=== PATIENT | male | born 1955 | race Caucasian/White ===

== ENCOUNTER 2023-08-01 16:00 | Inpatient (IN) | payer SELFPAY ==
[~2023-08-01] VITALS: Ht 167.6 cm; Wt 100.0 kg
[2023-08-01 17:03] LABS: APPEARANCE,URINE TURBID (CLEAR); BILIRUBIN,URINE NEGATIVE (NEGATIVE); COLOR,URINE ORANGE (YELLOW); GLUCOSE, URINE (UA) 70-100 mg/dL (NEGATIVE); KETONES,URINE NEGATIVE (NEGATIVE); LEUKOCYTE ESTERASE ,URINE LARGE (NEGATIVE); NITRATE,URINE NEGATIVE (NEGATIVE); OCCULT BLOOD,URINE LARGE (NEGATIVE); PROTEIN,URINE 300-600,SEE CONFIRM mg/dL (NEGATIVE); SPECIFIC GRAVITIY, URINE 1.018 (1.003-1.030); UROBILINOGEN,URINE <=1.0 mg/dL (<=1.0)
[2023-08-01 17:15] LABS: SULFOSALICYLIC ACID,URINE 4+ (Negative)
[2023-08-01 17:16] LABS: BACTERIA,URINE Many /HPF (None Seen); RBC,URINE 26-50 /HPF (0-2); WBC,URINE Full Field /HPF (0-5)
[2023-08-01] MEDS ORDERED: 0.9% SODIUM CHLORIDE 10 ML SYRINGE IVP PRN (17:45)
[2023-08-01 18:00] LABS: COVID AG,FIA SOURCE NASAL SWAB
[2023-08-01 18:17] LABS: HEMATOCRIT 40.5 % (41-53); HEMOGLOBIN 13.7 g/dL (13.5-17.5); MEAN CORPUSCULAR HEMOGLOBIN 31.8 pg (26.0-34.0); MEAN CORPUSCULAR HGB CONC 33.8 G/dL (31.0-37.0); MEAN CORPUSCULAR VOLUME 94 fL (80-100); PLATELET COUNT (AUTO) 268 K/uL (150-450); RED BLOOD CELL COUNT(AUTO) 4.31 MIL/uL (4.50-5.90); RED CELL DISTRIBUTION WIDTH 14.3 % (11.5-14.5); WHITE BLOOD COUNT (AUTO) 23.1 K/uL (4.5-11.0)
[2023-08-01 18:25] LABS: SARS-COV2 (COVID) ANTIGEN,FIA Negative (Negative)
[2023-08-01 18:28] LABS: D-DIMER 0.88 mg/L FEU (0.00-0.50); INR 1.1 (0.9-1.1); PROTHROMBIN TIME 11.5 SEC (9.4-11.6)
[2023-08-01 18:32] LABS: TROPONIN I-HIGH SENSITIVITY 12 ng/L (<76)
[2023-08-01 18:39] LABS: ANION GAP 11 mmol/L (8-16); CALCIUM, TOTAL 8.3 mg/dL (8.8-10.5); CARBON DIOXIDE 23 mmol/L (22-29); CHLORIDE 96 mmol/L (98-107); CREATININE 2.06 mg/dL (0.60-1.30); GLOMERULAR FILTR. RATE CALC 32 mL/min (>60); GLUCOSE,RANDOM 99 mg/dL (70-110); LACTIC ACID 2.3 mmol/L (0.4-2.0); POTASSIUM 4.4 mmol/L (3.5-5.1); SODIUM SERUM 130 mmol/L (136-145); UREA NITROGEN, BLOOD 25 mg/dL (7-18)
[2023-08-01] MEDS: SODIUM CHLORIDE 0.9% 2,950 ML IV ONE (18:40)
[2023-08-01] MEDS: CefTRIAXone 1 GM/DEXTROSE 50 ML IV ONE (18:41)
[2023-08-01 18:44] LABS: ALANINE AMINOTRANSFERASE 54 U/L (12-78); ALBUMIN 3.2 g/dL (3.4-5.0); ALKALINE PHOSPHATASE 75 U/L (46-116); ASPARTATE AMINOTRANSFERASE 27 U/L (15-37); BILIRUBIN,TOTAL 1.6 mg/dL (0.1-1.0); TOTAL PROTEIN, SERUM 7.7 g/dL (6.4-8.2)
[2023-08-01 19:05] LABS: BAND NEUTROPHILS % (MANUAL) 23 % (0-5); LYMPHOCYTES % (MANUAL) 5 % (22-44); MONOCYTES % (MANUAL) 4 % (2-9); SEGMENTED NEUTROPHILS % 68 % (40-70); TOTAL CELLS COUNTED 100
[2023-08-02 12:06] VITALS: BP 122/72; PULSE 121; RESP 20; TEMP 98
[2023-08-02] MEDS ORDERED: MORPHINE SULFATE 2 MG/ML SYRINGE IVP PRN (13:00)
[2023-08-02] MEDS ORDERED: ZOLPIDEM TARTRATE 5 MG TABLET PO PRN (13:00)
[2023-08-02] MEDS ORDERED: ONDANSETRON HCL 4 MG/2 ML VIAL IVP PRN (13:00)
[2023-08-02] MEDS ORDERED: MAGNESIUM HYDROXIDE SUSPENSION 30 ML UDCUP PO PRN (13:00)
[2023-08-02] MEDS ORDERED: BISACODYL 10 MG RECTAL RECTAL SUPPOSITORY PR PRN (13:00)
[2023-08-02] MEDS ORDERED: IPRATROPIUM BROMIDE 0.5 MG/2.5 ML NEB SOLUTION NEB PRN (13:00)
[2023-08-02] MEDS ORDERED: ALBUTEROL SULFATE 2.5 MG/0.5 ML NEB SOLUTION NEB PRN (13:00)
[2023-08-02 13:40] LABS: HEMATOCRIT 37.1 % (41-53); HEMOGLOBIN 12.7 g/dL (13.5-17.5); MEAN CORPUSCULAR HGB CONC 34.2 G/dL (31.0-37.0); MEAN CORPUSCULAR VOLUME 94 fL (80-100); PLATELET COUNT (AUTO) 162 K/uL (150-450); RED BLOOD CELL COUNT(AUTO) 3.96 MIL/uL (4.50-5.90); RED CELL DISTRIBUTION WIDTH 14.4 % (11.5-14.5); WHITE BLOOD COUNT (AUTO) 19.7 K/uL (4.5-11.0)
[2023-08-02 13:47] LABS: HEMOGLOBIN A1C 6.4 % (3.8-5.6)
[2023-08-02 13:53] LABS: CALCIUM, TOTAL 8.3 mg/dL (8.8-10.5); CREATININE 2.07 mg/dL (0.60-1.30); POTASSIUM 4.2 mmol/L (3.5-5.1)
[2023-08-02 13:59] LABS: ALBUMIN 2.9 g/dL (3.4-5.0); BILIRUBIN,TOTAL 2.1 mg/dL (0.1-1.0); TOTAL PROTEIN, SERUM 7.3 g/dL (6.4-8.2); URIC ACID 9.4 mg/dL (2.6-7.2)
[2023-08-02 14:16] LABS: BAND NEUTROPHILS % (MANUAL) 14 % (0-5); LYMPHOCYTES % (MANUAL) 13 % (22-44); MONOCYTES % (MANUAL) 2 % (2-9); SEGMENTED NEUTROPHILS % 71 % (40-70); TOTAL CELLS COUNTED 100
[2023-08-02 14:17] LABS: RBC MORPHOLOGY COMMENT NORMAL RBC MORPH
[2023-08-02] MEDS: ACETAMINOPHEN 325 MG TABLET PO PRN (14:32)
[2023-08-02 15:21] VITALS: BP 128/70; PULSE 130; RESP 18; TEMP 98
[2023-08-02] MEDS: HEPARIN SODIUM,PORCINE 5,000 UNITS/ML VIAL SQ SCH (16:38)
[2023-08-02] MEDS: CefTRIAXone 1 GM/DEXTROSE 50 ML IV SCH (17:27)
[2023-08-02 20:55] VITALS: BP 123/70; PULSE 106; RESP 22; TEMP 98
[2023-08-03 00:10] VITALS: BP 125/73; PULSE 110; RESP 22; TEMP 98.3
[2023-08-03 04:00] VITALS: BP 141/81; PULSE 111; RESP 22; TEMP 98.1
[2023-08-03 07:38] LABS: BASOPHILS % (AUTO) 0.4 % (0.0-2.0); EOSINOPHILS % (AUTO) 1.3 % (1.0-6.0); HEMATOCRIT 35.9 % (41-53); HEMOGLOBIN 12.3 g/dL (13.5-17.5); LYMPHOCYTES # (AUTO) 1.3 K/uL (1.0-4.8); LYMPHOCYTES % (AUTO) 8.6 % (22.0-44.0); MEAN CORPUSCULAR HEMOGLOBIN 32.1 pg (26.0-34.0); MEAN CORPUSCULAR HGB CONC 34.2 G/dL (31.0-37.0); MEAN CORPUSCULAR VOLUME 94 fL (80-100); MONOCYTES # (AUTO) 0.6 K/uL (0.1-1.0); MONOCYTES % (AUTO) 3.7 % (2.0-9.0); NEUTROPHILS # (AUTO) 13.5 K/uL (1.8-7.7); PLATELET COUNT (AUTO) 130 K/uL (150-450); RED BLOOD CELL COUNT(AUTO) 3.82 MIL/uL (4.50-5.90); RED CELL DISTRIBUTION WIDTH 14.5 % (11.5-14.5); WHITE BLOOD COUNT (AUTO) 15.7 K/uL (4.5-11.0)
[2023-08-03 07:52] LABS: ALBUMIN 2.6 g/dL (3.4-5.0); BILIRUBIN,TOTAL 0.9 mg/dL (0.1-1.0); CALCIUM, TOTAL 8.5 mg/dL (8.8-10.5); CREATININE 1.46 mg/dL (0.60-1.30); POTASSIUM 3.7 mmol/L (3.5-5.1); TOTAL PROTEIN, SERUM 7.1 g/dL (6.4-8.2)
[2023-08-03 07:59] LABS: RBC MORPHOLOGY COMMENT NORMAL RBC MORPH
[2023-08-03] MEDS: PANTOPRAZOLE SODIUM 40 MG DR TABLET PO SCH (08:14)
[2023-08-03 11:43] VITALS: BP 141/79; PULSE 106; RESP 20; TEMP 98.2
[2023-08-03 15:00] VITALS: BP 129/66; PULSE 107; RESP 20; TEMP 98.2
[2023-08-03] MEDS ORDERED: SODIUM CHLORIDE 0.9% 500 ML IV ONE (15:46)
[2023-08-03 19:21] VITALS: BP 137/74; PULSE 107; RESP 19; TEMP 98.6
[2023-08-04 04:39] VITALS: BP 140/84; PULSE 105; RESP 18; TEMP 98.2
[2023-08-04 07:00] LABS: BASOPHILS % (AUTO) 0.6 % (0.0-2.0); EOSINOPHILS % (AUTO) 4.3 % (1.0-6.0); HEMATOCRIT 35.9 % (41-53); HEMOGLOBIN 12.6 g/dL (13.5-17.5); LYMPHOCYTES # (AUTO) 1.2 K/uL (1.0-4.8); LYMPHOCYTES % (AUTO) 16.6 % (22.0-44.0); MEAN CORPUSCULAR HEMOGLOBIN 32.6 pg (26.0-34.0); MEAN CORPUSCULAR VOLUME 93 fL (80-100); MONOCYTES # (AUTO) 0.5 K/uL (0.1-1.0); MONOCYTES % (AUTO) 6.9 % (2.0-9.0); NEUTROPHILS # (AUTO) 5.4 K/uL (1.8-7.7); NEUTROPHILS % (AUTO) 71.6 % (40.0-70.0); PLATELET COUNT (AUTO) 142 K/uL (150-450); RED BLOOD CELL COUNT(AUTO) 3.85 MIL/uL (4.50-5.90); RED CELL DISTRIBUTION WIDTH 14.6 % (11.5-14.5); WHITE BLOOD COUNT (AUTO) 7.5 K/uL (4.5-11.0)
[2023-08-04 07:25] LABS: ALANINE AMINOTRANSFERASE 37 U/L (12-78); ALBUMIN 2.5 g/dL (3.4-5.0); ALKALINE PHOSPHATASE 85 U/L (46-116); ANION GAP 8 mmol/L (8-16); ASPARTATE AMINOTRANSFERASE 25 U/L (15-37); BILIRUBIN,TOTAL 0.6 mg/dL (0.1-1.0); CALCIUM, TOTAL 8.6 mg/dL (8.8-10.5); CARBON DIOXIDE 24 mmol/L (22-29); CHLORIDE 104 mmol/L (98-107); CREATININE 1.15 mg/dL (0.60-1.30); GLOMERULAR FILTR. RATE CALC > 60 mL/min (>60); GLUCOSE,RANDOM 99 mg/dL (70-110); POTASSIUM 3.3 mmol/L (3.5-5.1); SODIUM SERUM 136 mmol/L (136-145); TOTAL PROTEIN, SERUM 7.2 g/dL (6.4-8.2); UREA NITROGEN, BLOOD 18 mg/dL (7-18)
[2023-08-04 09:07] VITALS: BP 119/63; PULSE 92; RESP 20; TEMP 98.1
[2023-08-04] MEDS: POTASSIUM CHLORIDE 20 MEQ ER TABLET PO ONE (11:10)
[2023-08-04] MEDS: HYDROCODONE/ACETAMINOPHEN 5-325 MG TABLET PO PRN (18:24)
[2023-08-04 20:30] VITALS: BP 125/73; PULSE 95; RESP 20; TEMP 98.1
[2023-08-05 04:35] VITALS: BP 128/76; PULSE 82; RESP 18; TEMP 98.1
[2023-08-05 06:41] LABS: BASOPHILS % (AUTO) 0.6 % (0.0-2.0); EOSINOPHILS % (AUTO) 6.1 % (1.0-6.0); HEMATOCRIT 35.9 % (41-53); HEMOGLOBIN 12.6 g/dL (13.5-17.5); LYMPHOCYTES # (AUTO) 1.3 K/uL (1.0-4.8); LYMPHOCYTES % (AUTO) 25.1 % (22.0-44.0); MEAN CORPUSCULAR HEMOGLOBIN 32.6 pg (26.0-34.0); MEAN CORPUSCULAR HGB CONC 35.2 G/dL (31.0-37.0); MEAN CORPUSCULAR VOLUME 93 fL (80-100); MONOCYTES # (AUTO) 0.7 K/uL (0.1-1.0); MONOCYTES % (AUTO) 13.8 % (2.0-9.0); NEUTROPHILS # (AUTO) 2.8 K/uL (1.8-7.7); NEUTROPHILS % (AUTO) 54.4 % (40.0-70.0); PLATELET COUNT (AUTO) 169 K/uL (150-450); RED BLOOD CELL COUNT(AUTO) 3.88 MIL/uL (4.50-5.90); RED CELL DISTRIBUTION WIDTH 14.7 % (11.5-14.5); WHITE BLOOD COUNT (AUTO) 5.2 K/uL (4.5-11.0)
[2023-08-05 07:15] LABS: ALANINE AMINOTRANSFERASE 47 U/L (12-78); ALBUMIN 2.5 g/dL (3.4-5.0); ALKALINE PHOSPHATASE 75 U/L (46-116); ANION GAP 10 mmol/L (8-16); ASPARTATE AMINOTRANSFERASE 29 U/L (15-37); BILIRUBIN,TOTAL 0.4 mg/dL (0.1-1.0); CALCIUM, TOTAL 8.5 mg/dL (8.8-10.5); CARBON DIOXIDE 24 mmol/L (22-29); CHLORIDE 104 mmol/L (98-107); CREATININE 1.17 mg/dL (0.60-1.30); GLOMERULAR FILTR. RATE CALC > 60 mL/min (>60); GLUCOSE,RANDOM 109 mg/dL (70-110); POTASSIUM 3.7 mmol/L (3.5-5.1); SODIUM SERUM 138 mmol/L (136-145); TOTAL PROTEIN, SERUM 7.4 g/dL (6.4-8.2); UREA NITROGEN, BLOOD 15 mg/dL (7-18)
[2023-08-05 08:30] VITALS: BP 129/69; PULSE 94; RESP 18; TEMP 97.9
[2023-08-05 15:43] VITALS: BP 139/87; PULSE 85; RESP 18; TEMP 97.9
[2023-08-05 19:40] VITALS: BP 125/77; PULSE 88; RESP 18; TEMP 97.8
[2023-08-06 05:56] VITALS: BP 137/72; PULSE 82; RESP 18; TEMP 98.2
[2023-08-06 06:41] LABS: EOSINOPHILS % (AUTO) 5.2 % (1.0-6.0); HEMATOCRIT 37.8 % (41-53); LYMPHOCYTES # (AUTO) 1.8 K/uL (1.0-4.8); LYMPHOCYTES % (AUTO) 30.1 % (22.0-44.0); MEAN CORPUSCULAR HGB CONC 34.4 G/dL (31.0-37.0); MEAN CORPUSCULAR VOLUME 93 fL (80-100); MONOCYTES % (AUTO) 16.3 % (2.0-9.0); NEUTROPHILS # (AUTO) 2.9 K/uL (1.8-7.7); NEUTROPHILS % (AUTO) 47.4 % (40.0-70.0); PLATELET COUNT (AUTO) 179 K/uL (150-450); RED BLOOD CELL COUNT(AUTO) 4.05 MIL/uL (4.50-5.90); RED CELL DISTRIBUTION WIDTH 14.5 % (11.5-14.5)
[2023-08-06 07:10] LABS: ALBUMIN 2.6 g/dL (3.4-5.0); BILIRUBIN,TOTAL 0.4 mg/dL (0.1-1.0); CALCIUM, TOTAL 8.4 mg/dL (8.8-10.5); CREATININE 1.27 mg/dL (0.60-1.30); POTASSIUM 3.7 mmol/L (3.5-5.1); TOTAL PROTEIN, SERUM 7.5 g/dL (6.4-8.2)
[2023-08-06 09:07] VITALS: BP 126/80; PULSE 90; RESP 19; TEMP 98.1
[2023-08-06] MEDS ORDERED: LEVO-72 PO (09:59)
== END 2023-08-06 14:00 | disposition home or self-care (01) | DRG 872 ==
LOC: EMS 16:04 → 6S 08-02 00:21 → 5S 08-02 11:03 → 6N 08-03 15:21
PROVIDERS: ADMIT Hospitalist; ATTEND Hospitalist
DX: A41.9 Sepsis, unspecified organism (principal); N39.0 Urinary tract infection, site not specified; N17.9 Acute kidney failure, unspecified; E86.0 Dehydration; Z20.822 Contact with and (suspected) exposure to COVID-19; R31.9 Hematuria, unspecified; E66.9 Obesity, unspecified; I10 Essential (primary) hypertension; D69.6 Thrombocytopenia, unspecified; E87.6 Hypokalemia; Z90.49 Acquired absence of other specified parts of digestive tract; Z68.35 Body mass index [BMI] 35.0-35.9, adult
CPT/HCPCS: 71045; 80053; 81001; 81002; 83036; 83605; 84145; 84484; 84550; 85025; 85379; 85610; 85730; 87040; 87077; 87086; 87186; 87205; 93005; 99285; J0696; J1644; J7030; J7040; 36415-L1; 36415-TC